=== PATIENT | male | born 1940 | race Caucasian/White ===

== ENCOUNTER 2017-08-12 10:07 | Day surgery (SDC) | payer MEDICARE, OTHER ==
[~2017-08-12] VITALS: Ht 167.6 cm; Wt 141.2 kg
[~2017-08-12 10:07] MED LIST: ASPI325T PO; BENA10TA PO; FURO20TA PO; GLUCTAB PO; LOVA1TAB47 PO; NAPR220T95 PO; OXYC-360 PO; POTA-267 PO
[2017-08-12] MEDS ORDERED: IOHEXOL 350 MG/ML 100 ML BTL (for Cath Lab) OTHER ONE (10:08)
[2017-08-12 10:46] VITALS: BP 169/76; PULSE 53; RESP 18; O2SAT 94
[2017-08-12] MEDS ORDERED: LOVA20TA PO (10:46)
[2017-08-12] MEDS ORDERED: OMEGCAP PO (10:46)
[2017-08-12] MEDS ORDERED: NIAC500T5 PO (10:46)
[2017-08-12] MEDS ORDERED: BENA10TA PO (10:46)
[2017-08-12] MEDS ORDERED: FURO20TA PO (10:46)
[2017-08-12] MEDS ORDERED: VIAG100T PO (10:46)
[2017-08-12] MEDS ORDERED: ALEV220T14 PO (10:46)
[2017-08-12] MEDS ORDERED: ALBUAER3 INH (10:46)
[2017-08-12] MEDS ORDERED: META48.53 PO (10:46)
[2017-08-12] MEDS ORDERED: ASPI-516 CHEW (10:46)
[2017-08-12] MEDS ORDERED: POTA10TA2 PO (10:46)
[2017-08-12] MEDS ORDERED: NS 1000P @30 MLS/HR (KVO) IV SCH (11:15)
[2017-08-12 11:17] LABS: AUTOMATED NEUTROPHIL # 4.4 TH/MM3 (1.8-7.7); BASOPHIL % 0.6 % (0.0-2.0); EOSINOPHIL # 0.3 TH/MM3 (0-0.4); EOSINOPHIL % 4.1 % (0.0-4.0); HEMATOCRIT 42.8 % (39.0-51.0); HEMOGLOBIN 14.5 GM/DL (13.0-17.0); LYMPH % 23.3 % (9.0-44.0); LYMPHOCYTE # 1.7 TH/MM3 (1.0-4.8); MEAN CELL VOLUME 89.1 FL (80.0-100.0); MEAN CORPUSCULAR HEMOGLOBIN 30.3 PG (27.0-34.0); MEAN PLATELET VOLUME 8.3 FL (7.0-11.0); MONO % 10.5 % (0.0-8.0); MONOCYTE # 0.7 TH/MM3 (0-0.9); NEUT % 61.5 % (16.0-70.0); PLATELET COUNT 232 TH/MM3 (150-450); RED CELL DISTRIBUTION WIDTH 12.6 % (11.6-17.2); WHITE BLOOD COUNT 7.1 TH/MM3 (4.0-11.0)
[2017-08-12 11:29] LABS: PROTHROMBIN TIME - PATIENT 10.3 SEC (9.8-11.6)
[2017-08-12 11:31] LABS: BICARBONATE 30.8 MEQ/L (21.0-32.0); CALCIUM 9.3 MG/DL (8.5-10.1); CREATININE 0.89 MG/DL (0.60-1.30)
--- NOTE | 2017-08-12 12:12 | EKG ---
Date Performed: 08/12/2017 Time Performed: 10:58:36 PTAGE: 77 years EKG: Sinus bradycardia with PAC(s). Left axis deviation IV conduction defect Lateral T wave mckoy ges are nonspecific Abnormal ECG PREVIOUS TRACING : 12/15/2011 09.32 DOCTOR: Quinn Qureshi Interpretating Date/Time 08/12/2017 12:11:07
[2017-08-12] MEDS ORDERED: MIDAZOLAM HCL 2 MG/2 ML VIAL ONE ×2 (12:25→13:21)
[2017-08-12] MEDS ORDERED: HEPARIN-NS/PF FLUSH BAG 2,000 ML IV FLUSH ONE (12:25)
--- NOTE | 2017-08-12 13:40 | CATHPROC ---
Intacct HIS Report Study Information Study Number Admission Scheduled Start Study Start [id number] Aug 12 2017 10:07AM 08/12/2017 Aug 12 2017 11:56AM [place] [facility] Cardiac Catheterization Admit Source Facility Department Other [facility] - [facility] Physician and Clinical Staff Initial Dragan Dugan Doctor'S Assistant Vladislav Farley RN Doctor'S Assistant Mandi Sanchez,EM Recorder Taylor Junior,RT(R) ScrTaylor Parker,RT(R) (BS) Procedures Performed Procedure Location (Site) Vessel Name Angiogram LV LV Ventricle Coronary Angiograms LCA Left Coronary Coronary Angiograms RCA Right Coronary L Heart Cath Equipment Time Jewel Bearing Maker Description Size Mfg Part Number Used/Scraped TRANSDUCER, TRColibri Heart ValveAVE [id number] 12:36 ELAINE GONZALEZ * Used W/STOCKCOCK *[id number] 13:23 [employer] MEDICAL VASCADE, FR5 CLOSURE SYSTEM FR 5 Used *[id number] INTRODUCER SET, 12:36 [employer] FR 5 [id number] *[id number] Used MICROPUNCTURE STIFF 538-476 *[id number] 538-420 *[id number] 538-453S *[id number] 12:36 [employer] PACK, CCL CUSTOM * Used *[id number] 12:36 [employer] PACER PEN, SKIN DUAL W/ RULER * Used *[id number] 12:36 [employer] MEDICAL WIRE, 3MMJ .035 180CM 180CM Used *[id number] PROBE COVER, STERILE [id number] 12:36 [employer] * Used ULTRASOUND W/ GEL *[id number] 12:36 N[employer] MANIFOLD, 4 PORT * Used *[id number] 13:14 NAM[employer] TUBING, HIGH PRESSURE 20" 20" Used *[id number] 12:36 [employer] OMNIPAQUE, 350 MG, 150ML 150ML [id number] Used 13:18 [employer] OMNIPAQUE, 350 MG, 50ML 50ML [id number] Used [id number] 12:36 [employer] BLANKET,WARM AIR CCL * Used *[id number] 12:36 [employer] MEDICAL SHEATH, FR4 TERUMO (10CM) FR 4 Used *[id number] 13:22 [employer] MEDICAL SHEATH, FR5 TERUMO (10CM) FR 5 Used *[id number] History: Current Medications Medication Dosage/Unit Route Frequency Last Date/Time Taken ASA Statins (any) History: Allergies Allergy Reaction No Known Allergies History: Risk Factors Family History of Hypertension Dyslipidemia Previous HI Previous Heart Failure Premature CAD Yes Yes Yes No No Prior Valve Prior PCI Prior CABG Surgery No No No Cerebrovascular Peripheral Artery Chronic Lung On Dialysis Diabetes Disease Disease Disease No No No No No History: Symptoms/Diagnosis Selection Items Palpitations History: Stress Tests Stress or Imaging Studies Performed Yes Standard Exercise Stress Test No Stress Echo No Stress Test SPECT Stress Test SPECT Result Stress Test SPECT Ischemia Risk/Extent Yes Positive Intermediate Stress Test CMR No Cardiac CTA Coronary Calcium Score No No History: Other Current Smoker Method Quit Packs a Day Years Used Pack Years No Cigarettes 60 Years Ago 1 4 4 Labs Hgb (g/dl) Hct (%) WBC (l/cumm) Platelets (thousands) 11.60-17.00 35.00-51.00 4.00-11.00 150.00-450.00 14.5 42.8 7.1 232 Glucose (mg/dl) BUN (mg/dl) Creatinine (mg/dl) BUN:Creatinine (1:x) 74.00-106.00 7.00-18.00 0.50-1.30 10.00-20.00 94 18 0.9 20 Na (meq/l) K (meq/l) 136.00-145.00 3.50-5.10 143 4.4 INR (PTT:PT) 0.90-1.10 1 Medication Medication Total Dose (Bolus/Oral) Medication Total Dosage/Unit 1% XYLOCAINE 20 mL FENTANYL 50 mcg VERSED 4 mg Medications (Bolus/Oral) Medication Time Given Dosage/Unit Administered By Reason VERSED 08/12/2017 12:58:00 PM 2 mg Mandi Sanchez 2 mg VERSED given in lab by Mandi Sanchez, RN in Left Antecubital via Peripheral IV. Ordered by Dragan Lancaster. FENTANYL 08/12/2017 12:59:08 PM 50 mcg Mandi Sanchez 50 mcg FENTANYL given in lab by Mandi Sanchez, RN in Left Antecubital via Peripheral IV. Ordered by Dragan Frias. 1% XYLOCAINE 08/12/2017 1:03:50 PM 20 mL Dragan Frias 20 mL 1% XYLOCAINE given in lab by Dragan Frias in Right Groin via Subcutaneous. VERSED 08/12/2017 1:22:28 PM 2 mg Mandi Sanchez 2 mg VERSED given in lab by Mandi Sanchez RN in Left Antecubital via Peripheral IV. Ordered by Dragan Lancaster. Medication (Drip) Medication Time Given Dosage/Unit Concentration/Unit Diluent (ml) Solution IV Solutions 08/12/2017 12:23:11 PM 50 mL (IV) NaCl .9 IV Solutions given in lab by Mandi Sanchez RN in Left Antecubital via Peripheral IV. Pump/Drip Flow using NaCl .9. Initial Case Assessment Cardiovascular HR Rhythm NIBP Chest Pain 50 margie 156/77 0 Edema Present Skin color Skin Moderate Normal Warm Dry Circulatory - Right Pulses Dorsalis Pedis Femoral 1 2 Scale (0,1,2,3,4,d) Circulatory - Left Pulses Dorsalis Pedis Femoral 1 2 Scale (0,1,2,3,4,d) Neurological State Oriented to time-place- Alert Moves all extremities person Respiration - General Respiration Rate SpO2 (%) (B/min) 17 98 Chronological Log Time Study Chronological Log 12:22:03 Patient arrived via Bed. 12:22:57 Patient Name, D.O.B, / Armband Verified By R.N. 12:22:58 Consent signed by the physician and the patient and verified by the [facility] staff. 12:22:58 Pre-op and post- op instructions given; patient acknowledges understanding of instructions. 12:22:59 Verbal Stimulation=2 Physical Stimulation=2 Airway=2 Respiration=2 TOTAL=8. (0=absent, 1=li mited, 2=present) 12:23:04 Presedation assessment performed by [facility] RN. 12:23:05 Patient has been NPO for More than 6Hrs. 12:23:06 Skin Breakdown- +3 edema lower extermities 12:23:07 Patient Warmer Placed on the Table. 12:23:08 Tristin Prominences Protected 12:23:10 A # 20 IV was noted in the Antecubital (left). Grade = 0 12:23:11 IV Solutions given in lab by Mandi Sanchez, EM in Left Antecubital via Peripheral IV. Pump /Drip Flow using NaCl .9. 12:23:12 History and physical on the chart or being dictated. Assessment: Initial Case, HR=50 BPM, Rhythm=margie, WRDQ=936/77 mmhg, Chest Pain=0, Edema=Mod, Color=Normal, Skin = Warm, Dry Right Pulses: Kenneth Ped=1, Femoral=2 12:23:13 Left Pulses: Kenneth Ped=1, Femoral=2 Neurological: State=Alert, Ox3, CUEVAS Respiration: Resp=17 B/min, SpO2=98 % Vitals capture started with the following parameters, Patient=Adult, Interval=5 min, Initial Pr tpjnod=372 mmHg, 12:28:01 Deflation Rate=5 mmHg, Cuff placed on Unknown 12:29:18 HR=49 bpm, FXGW=110/77 mmhg, SpO2=98.0 %, Resp=17 B/min 12:30:17 Reference ECG taken 12:34:36 HR=43 bpm, LDID=875/69 mmhg, SpO2=97.0 %, Resp=12 B/min 12:38:54 HR=54 bpm, FIEE=477/82 mmhg, SpO2=97.0 %, Resp=22 B/min 12:38:57 Bilateral groins prepped with 2% chlorhexidine, and draped after a 3 minute waiting time. 12:40:05 MD paged 12:41:43 Pressure channel 1 zeroed. 12:43:48 HR=51 bpm, WCQV=316/81 mmhg, SpO2=99.0 %, Resp=21 B/min 12:45:43 MD responded 12:49:31 HR=53 bpm, PVIM=909/80 mmhg, SpO2=98.0 %, Resp=21 B/min 12:53:47 HR=51 bpm, LVNC=349/94 mmhg, SpO2=97.0 %, Resp=17 B/min 12:57:21 MD arrived. 12:58:00 2 mg VERSED given in lab by Mandi Sanchez, RN in Left Antecubital via Peripheral IV. Order ed by Dragan Frias. 12:58:54 HR=46 bpm, DQNV=985/77 mmhg, SpO2=96.0 %, Resp=17 B/min 50 mcg FENTANYL given in lab by Mandi Sanchez, RN in Left Antecubital via Peripheral IV. Order ed by Rodriguez, 12:59:08 Dragan. Time Out. Correct patient, correct procedure, correct physician, power injector not loaded with contrast with surgical 13:02:23 team present. Time Out Concurred by MD and individual staff in procedure. 13:03:23 Case Start 13:03:50 20 mL 1% XYLOCAINE given in lab by Dragan Frias in Right Groin via Subcutaneous. 13:04:32 HR=51 bpm, CEZI=170/67 mmhg, SpO2=95 %, Resp=17 B/min 13:05:16 Access site was Right Femoral Artery w/ micropunture. 13:05:22 A SHEATH, FR4 TERUMO (10CM) FR 4 was advanced into the Fem Art (right) using the Percutaneo us technique. A JL 4.0 INFINITI CATHETER FR 4 was advanced over a wire. OMNIPAQUE, 350 MG, 150ML 150ML was us ed for 13:07:06 injections. 13:08:45 The LCA was injected and visualized at various angles. OMNIPAQUE, 350 MG, 150ML 150ML used . 13:08:48 HR=48 bpm, YYZL=071/75 mmhg, SpO2=97.0 %, Resp=18 B/min Recorded Pressure: Ao, HR=63, Condition=Condition 1 13:09:22 (Aorta) Ao 124/77/99 13:11:06 Catheter was removed A 3DRC INFINITI CATHETER FR 4 was advanced over a wire. OMNIPAQUE, 350 MG, 150ML 150ML was used for 13:11:23 injections. 13:12:45 Injector loaded by Vladislav Farley. 13:13:00 The RCA was injected and visualized at various angles. OMNIPAQUE, 350 MG, 150ML 150ML used . 13:14:24 HR=56 bpm, ZWVQ=753/82 mmhg, SpO2=98.0 %, Resp=19 B/min 13:15:15 Catheter was removed A PIGTAIL ANG. INFINITI CATHETER FR 4 was advanced over a wire. OMNIPAQUE, 350 MG, 150ML 150ML was used 13:15:18 for injections. Recorded Pressure: LV, HR=57, Condition=Condition 1 13:16:12 (Left Ventricle) LV 145/17/21 13:17:43 The LV was injected at 8 cc/sec for a total of 32. OMNIPAQUE, 350 MG, 50ML 50ML used. 13:18:52 HR=57 bpm, BFOV=547/76 mmhg, SpO2=98.0 %, Resp=20 B/min Recorded Pressure: LV, Ao, HR=54, Condition=Condition 1 13:19:07 (Left Ventricle) LV 166/16/32, (Aorta) Ao 137/67/98 13:19:39 Catheter was removed 13:21:17 An injection in the Fem Art (right) was made through the SHEATH, FR4 TERUMO (10CM) FR 4. A SHEATH, FR5 TERUMO (10CM) FR 5 was exchanged in the Fem Art (right). This was necessary in or kadi to minimize 13:21:35 site leakage. 13:22:28 2 mg VERSED given in lab by Mandi Sanchez, EM in Left Antecubital via Peripheral IV. Order ed by Dragan Frias. 13:23:53 HR=55 bpm, WPWY=546/77 mmhg, SpO2=99.0 %, Resp=19 B/min 13:23:55 VASCADE, FR5 CLOSURE SYSTEM FR 5 placement in the Fem Art (right) 13:26:20 Sterile dressing applied to site 13:26:21 No case complications noted. 13:26:22 Cine recording checked. 13:26:23 Holding Area notified. 13:26:31 A Left Heart Cath was performed. 13:27:13 Case End 13:28:54 HR=49 bpm, XHFJ=554/77 mmhg, SpO2=98.0 %, Resp=18 B/min 13:30:58 Implantable Device card placed in patient's chart. 13:33:47 HR=50 bpm, SDTW=293/81 mmhg, SpO2=99.0 %, Resp=18 B/min 13:40:16 Vitals capture stopped. 13:41:00 Patient moved to stretcher End Study - Contrast Media Used In Study Contrast Total Opened (mL) Total Used (mL) Total Wasted (mL) Omnipaque 60 60 0 End Study - Maximum Contrast Load Max Contrast Load (mL) 785.4 End Study - Radiation Exposure Fluoro Time (minutes) 2.3 End Study - Patient Disposition Complications Transferred To Interventional Outcome No Outpatient Bed No attempt made
--- NOTE | 2017-08-12 14:45 | MA ---
cc: Dragan Frias MD, Carol DATE: 08/12/2017 INDICATIONS FOR CATHETERIZATION: 1. 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 2. Bradycardia. 3. Family history of heart disease. CONSENT: Fully informed consent was obtained prior to the procedure. The risks of , bleeding, myocardial infarction, perforation and aspiration, foreseen and unforeseen complications were reviewed. The patient fully appeared to understand the risks. PROCEDURAL STATEMENTS: 1. LV and coronaries 2. Sedation 3. Femoral angiogram 4. Vascade closure The patient was draped and prepped in the usual manner. The right femoral artery was entered using a micropuncture technique. Via the 4-[place] sheath, left and right coronary catheters were used to intubate the right and left coronaries, pigtail catheter to intubate the left ventricle. Multiple angiographic views were carried out. At the end of the catheterization procedure, all catheters and sheaths were removed. Prior to the sheath being removed, a femoral angiogram was performed and a VASCADE placed in the usual manner. FINDINGS: I. HEMODYNAMICS: The aortic pressure was 137/67 with a mean of 98. Left ventricular pressure was 166. The left ventricular end-diastolic pressure was 32. There was no evidence of significant gradient on pullback across the LV outflow tract. II. LEFT VENTRICULOGRAPHY The overall left ventricular ejection fraction 65 percent. There is no evidence of significant mitral regurgitation nor mural thrombus. III. CORONARIES: The left main was large and free of significant disease. The left anterior descending artery was a large artery. There was a large first diagonal branch. 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 This muscle bridging is the likely cause of the patient's abnormal nuclear stress test. The circumflex artery was a large vessel with a large first obtuse marginal branch and small second obtuse marginal branch. The right coronary artery is a medium-sized vessel. There is a medium-sized posterior descending artery and small posterior lateral branch. CONCLUSIONS: 1. 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 2. We will continue medical management. MD EVELYN Castro/VIDHYA , 01:52 PM , 02:44 PM JOJO
== END 2017-08-12 17:24 | disposition home or self-care (01) ==
LOC: HDIC 10:07 → HDOC 10:07
PROVIDERS: ATTEND Internal Medicine Cardiovascular Disease
DX: Q24.5 Malformation of coronary vessels (principal); R00.1 Bradycardia, unspecified; R93.1 Abnormal findings on diagnostic imaging of heart and coronary circulation; I51.7 Cardiomegaly; I44.4 Left anterior fascicular block; I87.8 Other specified disorders of veins; I10 Essential (primary) hypertension; E78.5 Hyperlipidemia, unspecified; Z82.49 Family history of ischemic heart disease and other diseases of the circulatory system
CPT/HCPCS: 80048; 85025; 85610; 85730; 93005; 93458; 99152; 99153; C1760; C1769; C1893; G0269; J1644; J2250; J3010; Q9967